=== PATIENT | female | born 1985 | race Caucasian/White ===

== ENCOUNTER → 2025-04-16 10:32 | Outpatient (REF) | payer BC, SELFPAY | LOC: PNTC 10:32 | PROVIDERS: ATTENDING PHYSICIAN Obstetrics & Gynecology | DX: O09.529 Supervision of elderly multigravida, unspecified trimester (principal); O43.219 Placenta accreta, unspecified trimester | CPT/HCPCS: 76805; 93976 ==

== ENCOUNTER → 2025-05-15 13:12 | Outpatient (REF) | payer BC, SELFPAY | LOC: PNTC 13:12 | PROVIDERS: ATTENDING PHYSICIAN Advanced Practice Midwife | DX: O09.522 Supervision of elderly multigravida, second trimester (principal); O34.211 Maternal care for low transverse scar from previous cesarean delivery; O99.212 Obesity complicating pregnancy, second trimester | CPT/HCPCS: 76811; 93976 ==

== ENCOUNTER → 2025-06-18 13:24 | Outpatient (REF) | payer BC, SELFPAY | LOC: PNTC 13:24 | PROVIDERS: ATTENDING PHYSICIAN Obstetrics & Gynecology | DX: O09.522 Supervision of elderly multigravida, second trimester (principal); O99.212 Obesity complicating pregnancy, second trimester; O43.219 Placenta accreta, unspecified trimester | CPT/HCPCS: 76816; 93976 ==

== ENCOUNTER → 2025-07-16 13:26 | Outpatient (REF) | payer BC, SELFPAY | LOC: PNTC 13:26 | PROVIDERS: ATTENDING PHYSICIAN Obstetrics & Gynecology | DX: O09.523 Supervision of elderly multigravida, third trimester (principal); O99.213 Obesity complicating pregnancy, third trimester; O34.219 Maternal care for unspecified type scar from previous cesarean delivery | CPT/HCPCS: 76816; 93976 ==

== ENCOUNTER → 2025-08-20 13:50 | Outpatient (REF) | payer BC, SELFPAY | LOC: PNTC 13:50 | PROVIDERS: ATTENDING PHYSICIAN Obstetrics & Gynecology | DX: O09.523 Supervision of elderly multigravida, third trimester (principal); O99.213 Obesity complicating pregnancy, third trimester; O34.219 Maternal care for unspecified type scar from previous cesarean delivery; O36.5930 Maternal care for other known or suspected poor fetal growth, third trimester, not applicable or unspecified | CPT/HCPCS: 59025; 76816; 76820 ==

== ENCOUNTER → 2025-08-25 14:14 | Outpatient (REF) | payer BC, SELFPAY | LOC: PNTC 14:14 | PROVIDERS: ATTENDING PHYSICIAN Obstetrics & Gynecology | DX: O09.523 Supervision of elderly multigravida, third trimester (principal); O99.213 Obesity complicating pregnancy, third trimester; O34.219 Maternal care for unspecified type scar from previous cesarean delivery; O36.5930 Maternal care for other known or suspected poor fetal growth, third trimester, not applicable or unspecified | CPT/HCPCS: 59025; 76815; 76820 ==

== ENCOUNTER → 2025-09-01 11:50 | Outpatient (REF) | payer BC, SELFPAY | LOC: PNTC 11:50 | PROVIDERS: ATTENDING PHYSICIAN Advanced Practice Midwife | DX: O09.523 Supervision of elderly multigravida, third trimester (principal); O99.213 Obesity complicating pregnancy, third trimester; O36.5130 Maternal care for known or suspected placental insufficiency, third trimester, not applicable or unspecified; O34.219 Maternal care for unspecified type scar from previous cesarean delivery | CPT/HCPCS: 59025; 76816; 76820 ==

== ENCOUNTER → 2025-09-04 09:27 | Outpatient (REF) | payer BC, SELFPAY | LOC: PNTC 09:27 | PROVIDERS: ATTENDING PHYSICIAN Advanced Practice Midwife | DX: O09.523 Supervision of elderly multigravida, third trimester (principal); O99.213 Obesity complicating pregnancy, third trimester | CPT/HCPCS: 59025 ==

== ENCOUNTER → 2025-09-08 08:31 | Outpatient (REF) | payer BC, SELFPAY | LOC: PNTC 08:31 | PROVIDERS: ATTENDING PHYSICIAN Advanced Practice Midwife | DX: O99.213 Obesity complicating pregnancy, third trimester (principal); O09.523 Supervision of elderly multigravida, third trimester; O36.5930 Maternal care for other known or suspected poor fetal growth, third trimester, not applicable or unspecified; O34.219 Maternal care for unspecified type scar from previous cesarean delivery | CPT/HCPCS: 59025; 76815; 76820 ==

== ENCOUNTER 2025-09-09 14:58 | Inpatient (IN) | payer BC, SELFPAY ==
[2025-09-09 12:45] VITALS: BP 128/92; BMI 39.4
[2025-09-09 13:12] LABS: Urine Character Clear (Clear)
[2025-09-09 13:14] LABS: Hematocrit 35.6 % (37.0-47.0); Hemoglobin 11.7 g/dL (12.0-16.0); Mean Corp Hgb Conc. 32.9 g/dL (33.0-37.0); Mean Corpuscular Volume 73.4 fL (81.0-99.0); Platelet Count 292 10^3/uL (130-400); Red Cell Dist. Width 14.8 % (11.5-14.5)
[2025-09-09 13:37] LABS: ALT (SGPT) 20 U/L (0-35); AST (SGOT) 23 U/L (14-36); Albumin 3.4 g/dl (3.5-5.0); Alkaline Phosphatase 110 U/L (38-126); Blood Urea Nitrogen 10 mg/dl (7-17); Calcium 9.0 mg/dl (8.4-10.2); Carbon Dioxide 23 mmol/L (22-30); Chloride 105 mmol/L (98-107); Estimated Creatinine Clearance > 125 ml/min; Glucose 91 mg/dl (70-99); Potassium 4.1 mmol/L (3.5-5.1); Sodium 132 mmol/L (135-145); Total Protein 6.8 g/dl (6.3-8.2); eGFR > 60.00
[2025-09-09] MEDS: LR 1000 IV (15:28)
[2025-09-09] MEDS: TYLENOL 975 MG PO (16:03)
[2025-09-09] MEDS: BICITRA 30 ML PO (16:03)
[2025-09-09] MEDS: ANCEF 10 IV (16:30)
[2025-09-09] MEDS: TORADOL 15 MG IV (18:40)
[2025-09-09] MEDS: COLACE 100 MG PO (20:27)
[2025-09-09] MEDS: BENADRYL 25 MG PO (23:38)
[2025-09-10] MEDS: TORADOL 15 MG IV ×3 (00:37→12:29)
[2025-09-10 06:02] LABS: Hematocrit 30.5 % (37.0-47.0); Hemoglobin 10.1 g/dL (12.0-16.0); Mean Corp Hgb Conc. 33.1 g/dL (33.0-37.0); Mean Corpuscular Volume 74.6 fL (81.0-99.0); Platelet Count 247 10^3/uL (130-400); Red Cell Dist. Width 14.6 % (11.5-14.5)
--- NOTE | 2025-09-10 07:48 | W.PN.ANS.POP ---
Anesthesia Post Operative
- Anesthesia Post Op Note
Vital Signs Stable-See Nursing Note: Yes
Airway Patent: Yes
Adequate Pain Control: Yes
Change in Mental Status: No
Current Postoperative Nausea & Vomiting: No
Anesthesia Complications: No
General Anesthetic Recall: No (n/a )
Unplanned Admission: No
Post Op Hydration Adequate: Yes
[2025-09-10] MEDS: PRENATAL PLUS 1 TABLET PO (08:18)
[2025-09-10] MEDS: COLACE 100 MG PO ×2 (08:18→20:35)
[2025-09-10 11:23] LABS: Syphilis/T. pallidum Ab Reflex Negative (Negative)
[2025-09-10] MEDS: TYLENOL 650 MG PO (17:45)
[2025-09-10] MEDS: MOTRIN 600 MG PO (20:35)
[2025-09-11] MEDS: MYLICON 80 MG PO (00:19)
[2025-09-11] MEDS: TYLENOL 650 MG PO ×2 (00:19→07:32)
[2025-09-11] MEDS: MOTRIN 600 MG PO (03:51)
[2025-09-11] MEDS: COLACE 100 MG PO (07:33)
[2025-09-11] MEDS: PRENATAL PLUS 1 TABLET PO (07:33)
== END 2025-09-11 11:48 | disposition home or self-care (01) | DRG 785 ==
LOC: LDRP 14:58
PROVIDERS: ADMITTING PHYSICIAN Obstetrics & Gynecology
PROC: 0UT70ZZ Resection of Bilateral Fallopian Tubes, Open Approach (ICD-10-PCS; 2025-09-09)
PROC: 10D00Z1 Extraction of Products of Conception, Low, Open Approach (ICD-10-PCS; 2025-09-09)
DX: O34.211 Maternal care for low transverse scar from previous cesarean delivery (principal); O13.4 Gestational [pregnancy-induced] hypertension without significant proteinuria, complicating childbirth; Z3A.37 37 weeks gestation of pregnancy; Z37.0 Single live birth; O36.5930 Maternal care for other known or suspected poor fetal growth, third trimester, not applicable or unspecified; O99.214 Obesity complicating childbirth; D25.2 Subserosal leiomyoma of uterus; O34.13 Maternal care for benign tumor of corpus uteri, third trimester; O90.81 Anemia of the puerperium; D64.9 Anemia, unspecified; Z30.2 Encounter for sterilization
CPT/HCPCS: 36415; 58605; 80053; 81003; 82570; 84156; 85027; 86780; 86850; 86900; 86901; 88302; 88307